=== PATIENT | female | born 1965 | race Caucasian/White ===

== ENCOUNTER 2021-09-05 17:50 | Emergency (ER) | payer SELFPAY ==
[~2021-09-05] VITALS: Ht 162.6 cm; Wt 73.0 kg
[2021-09-05 18:11] VITALS: BP 140/80
[2021-09-05] MEDS: KETOROLAC 30 MG/ML VIAL IM ONE (19:51)
[2021-09-05] MEDS ORDERED: LID5T TP (20:18)
[2021-09-05] MEDS ORDERED: CYCL-711 PO (20:18)
[2021-09-05] MEDS ORDERED: IBUP-2213 PO (20:18)
== END 2021-09-05 21:13 | disposition home or self-care (01) ==
LOC: MED 17:50
DX: S76.911A Strain of unspecified muscles, fascia and tendons at thigh level, right thigh, initial encounter (principal); M25.511 Pain in right shoulder; M79.18 Myalgia, other site; R03.0 Elevated blood-pressure reading, without diagnosis of hypertension; Z79.899 Other long term (current) drug therapy; Z79.1 Long term (current) use of non-steroidal anti-inflammatories (NSAID); V89.2XXA Person injured in unspecified motor-vehicle accident, traffic, initial encounter; Y93.89 Activity, other specified; Y92.410 Unspecified street and highway as the place of occurrence of the external cause; Y99.8 Other external cause status
CPT/HCPCS: 73030; 73552; 96372; 99284; J1885